=== PATIENT | male | born 1950 | race Caucasian/White ===

== ENCOUNTER 2018-10-10 08:27 | Emergency (ER) | payer OTHER ==
[~2018-10-10] VITALS: Ht 165.1 cm; Wt 62.6 kg
[2018-10-10] MEDS ORDERED: AVAPRO150 MG (08:34)
[2018-10-10] MEDS ORDERED: CATAPRES0.1 MG (08:34)
[2018-10-10] MEDS ORDERED: KAPSPARGO SPRIN50 MG PO (08:34)
[2018-10-10] MEDS ORDERED: ESCITALOPRAM OX10 MG (08:35)
[2018-10-10] MEDS ORDERED: ALPRAZOLAM0.25 MG (08:35)
[2018-10-10] MEDS ORDERED: NORVASC2.5 MG (08:35)
== END 2018-10-10 13:33 | disposition home or self-care (01) ==
LOC: ER 08:27
DX: K52.89 Other specified noninfective gastroenteritis and colitis (principal)